=== PATIENT | female | born 1950 | race African-American/Black ===

== ENCOUNTER 2017-04-11 15:14 | Emergency (ER) | payer MEDICARE ==
[~2017-04-11] VITALS: Ht 172.7 cm; Wt 118.0 kg
[~2017-04-11 15:14] MED LIST: LABETALOL PO; LEVOTHYROXINE PO; NICO1PAT15 TP; SIMV5TAB PO; TRIAMTERENE PO
[2017-04-11 15:22] VITALS: BP 177/94
[2017-04-11] MEDS ORDERED: AMLO10TA80 PO (15:31)
[2017-04-11] MEDS ORDERED: ASPI-1035 PO (15:31)
[2017-04-11] MEDS ORDERED: LOSA100T14 PO (15:31)
[2017-04-11] MEDS ORDERED: ACETAMINOPHEN 325MG TABLET PO ONE (17:15)
== END 2017-04-11 18:48 | disposition home or self-care (01) ==
LOC: ER 16:48
DX: M17.9 Osteoarthritis of knee, unspecified (principal); E03.9 Hypothyroidism, unspecified; E78.00 Pure hypercholesterolemia, unspecified; I10 Essential (primary) hypertension; Z87.891 Personal history of nicotine dependence; Z88.8 Allergy status to other drugs, medicaments and biological substances; Z79.82 Long term (current) use of aspirin
CPT/HCPCS: 73562; 99284

== ENCOUNTER 2017-06-02 16:15 | Inpatient (IN) | payer MEDICARE ==
[~2017-06-02] VITALS: Ht 172.7 cm; Wt 133.6 kg
[~2017-06-02 16:15] MED LIST changes: +AMLO10TA80 PO; +ASPI-1159 PO; +IOHEXOL-350 100 ML BOTTLE ONE; +LOSA100T14 PO; +SODIUM CHLORIDE 0.9% 10ML VIAL ONE
[2017-06-02] MEDS ORDERED: ASPIRIN 325MG TABLET PO ONE (18:00)
[2017-06-02] MEDS ORDERED: SODIUM CHLORIDE 0.9% 1,000 ML IV NR (18:33)
[2017-06-02 18:35] LABS: BASOPHILS % 1.2 % (0.0-2.0); HEMATOCRIT. 32.3 % (36.0-48.0); HEMOGLOBIN. 10.8 g/dL (12.0-16.0); LYMPHOCYTES % 22.6 % (20.0-50.0); MEAN CORPUSCULAR HEMOGLOBIN 31.5 pg (28.0-32.0); MEAN CORPUSCULAR VOLUME 93.8 fL (81.0-99.0); MEAN PLATELET VOLUME 9.1 fl (7.4-10.4); MONOCYTES % 7.7 % (2.0-8.0); NEUTROPHILS % 66.5 % (40.0-76.0); PLATELET 197 x1000/uL (130-400); RED BLOOD CELL COUNT 3.44 mill/uL (4.2-5.4); RED CELL DISTRIBUTION WIDTH 15.4 % (11.6-14.6)
[2017-06-02 18:43] LABS: CHLORIDE 106 mEq/L (98-107)
[2017-06-02 18:44] LABS: D-DIMER 1.57 mg/L FEU (<0.50); INR 1.2; PROTHROMBIN TIME 12.1 sec
[2017-06-02 18:45] LABS: CARBON DIOXIDE 28 mEq/L (21-32)
[2017-06-02] MEDS ORDERED: LEVOFLOXACIN 750MG PREMIX 150 ML IV NR (18:45)
[2017-06-02 19:45] LABS: CLARITY URINE CLEAR (CLEAR); COLOR URINE YELLOW (YELLOW); GLUCOSE URINE NEGATIVE (NEGATIVE); KETONES URINE NEGATIVE (NEGATIVE); LEUKOCYTE ESTERASE URINE NEGATIVE (NEGATIVE); NITRITE URINE NEGATIVE (NEGATIVE); OCCULT BLOOD URINE NEGATIVE (NEGATIVE); PH URINE 7.5 (4.5-8.0); PROTEIN URINE NEGATIVE (NEGATIVE); SPECIFIC GRAVITY URINE 1.008 (1.005-1.030)
[2017-06-02 21:59] VITALS: BP 162/114
[2017-06-02] MEDS ORDERED: PROBIOTICS PO (22:15)
[2017-06-02] MEDS ORDERED: MULT-1146 PO (22:15)
[2017-06-02 22:39] VITALS: BP 168/110
[2017-06-02 23:00] VITALS: BP 170/113
[2017-06-02] MEDS ORDERED: ACETAMINOPHEN 325MG TABLET PO PRN (23:15)
[2017-06-02] MEDS ORDERED: CLONIDINE 0.1MG TABLET PO PRN (23:15)
[2017-06-02] MEDS ORDERED: ONDANSETRON HCL 4MG/2ML VIAL IV PRN (23:15)
[2017-06-02] MEDS ORDERED: DOCUSATE SODIUM 100MG CAPSULE PO PRN (23:15)
[2017-06-03] VITALS (19 sets, daily range): BP systolic 135–188; BP diastolic 65–129
[2017-06-03] MEDS: METOPROLOL TARTRATE 25MG TABLET PO SCH ×2 (00:04→08:31)
[2017-06-03] MEDS: OMEPRAZOLE 20MG CAPSULE EXTENDED RELEASE PO SCH ×3 (00:05→21:10)
[2017-06-03] MEDS: FUROSEMIDE 40MG/4ML VIAL IV SCH ×3 (00:05→16:41)
[2017-06-03] MEDS: ENOXAPARIN 150MG/ML SYR SUBCUT SCH ×2 (01:21→13:04)
[2017-06-03] MEDS: LEVOTHYROXINE SODIUM 100MCG TABLET PO SCH (06:12)
[2017-06-03 07:08] LABS: BASOPHILS % 1.6 % (0.0-2.0); EOSINOPHILS % 3.1 % (0.0-5.0); HEMOGLOBIN. 10.9 g/dL (12.0-16.0); MEAN CORPUSCULAR VOLUME 94.1 fL (81.0-99.0); MEAN PLATELET VOLUME 9.1 fl (7.4-10.4); MONOCYTES % 9.7 % (2.0-8.0); NEUTROPHILS % 59.6 % (40.0-76.0); PLATELET 200 x1000/uL (130-400); RED CELL DISTRIBUTION WIDTH 15.5 % (11.6-14.6)
[2017-06-03 07:41] LABS: CARBON DIOXIDE 29 mEq/L (21-32); CHLORIDE 103 mEq/L (98-107); HDL CHOLESTEROL 50 mg/dL (40-59); LDL CHOLESTEROL 79 mg/dL (5-100); T4 FREE 0.26 ng/dL (0.76-1.46)
[2017-06-03 08:18] LABS: CREATINE KINASE MB FRACTION 4.8 ng/mL (0.5-3.6)
[2017-06-03] MEDS: LOSARTAN POTASSIUM 100 MG TABLET PO SCH (08:32)
[2017-06-03] MEDS: ASPIRIN 81MG EC TABLET PO SCH (08:33)
[2017-06-03 09:08] LABS: TROPONIN I 1.5 ng/mL (0.00-0.04)
[2017-06-03] MEDS ORDERED: HYDRALAZINE 20MG/ML VIAL IV PRN (12:00)
[2017-06-03 15:29] LABS: CREATINE KINASE MB FRACTION 4.9 ng/mL (0.5-3.6)
[2017-06-03 15:46] LABS: TROPONIN I 1.6 ng/mL (0.00-0.04)
[2017-06-03] MEDS ORDERED: LEVOFLOXACIN 500MG PREMIX 100 ML IV SCH (20:00)
[2017-06-03] MEDS: AMLODIPINE 2.5MG TABLET PO SCH (21:10)
[2017-06-04] VITALS (12 sets, daily range): BP systolic 127–160; BP diastolic 75–103
[2017-06-04] MEDS: ENOXAPARIN 150MG/ML SYR SUBCUT SCH ×2 (00:09→12:35)
[2017-06-04 06:35] LABS: BASOPHILS % 1.2 % (0.0-2.0); EOSINOPHILS % 3.8 % (0.0-5.0); HEMATOCRIT. 33.3 % (36.0-48.0); HEMOGLOBIN. 11.2 g/dL (12.0-16.0); LYMPHOCYTES % 34.5 % (20.0-50.0); MEAN CORPUSCULAR HEMOGLOBIN 31.8 pg (28.0-32.0); MEAN CORPUSCULAR VOLUME 94.9 fL (81.0-99.0); MEAN PLATELET VOLUME 9.1 fl (7.4-10.4); MONOCYTES % 10.8 % (2.0-8.0); NEUTROPHILS % 49.7 % (40.0-76.0); PLATELET 196 x1000/uL (130-400); RED BLOOD CELL COUNT 3.51 mill/uL (4.2-5.4); RED CELL DISTRIBUTION WIDTH 15.5 % (11.6-14.6)
[2017-06-04] MEDS: LEVOTHYROXINE SODIUM 100MCG TABLET PO SCH (06:36)
[2017-06-04] MEDS: OMEPRAZOLE 20MG CAPSULE EXTENDED RELEASE PO SCH (06:36)
[2017-06-04 06:43] LABS: CARBON DIOXIDE 31 mEq/L (21-32); CHLORIDE 100 mEq/L (98-107); CREATINE KINASE 385 IU/L (26-192); CREATINE KINASE MB FRACTION 3.6 ng/mL (0.5-3.6); HDL CHOLESTEROL 48 mg/dL (40-59); LDL CHOLESTEROL 93 mg/dL (5-100)
[2017-06-04] MEDS: ASPIRIN 81MG EC TABLET PO SCH (08:34)
[2017-06-04] MEDS: LOSARTAN POTASSIUM 100 MG TABLET PO SCH (08:34)
[2017-06-04] MEDS: FUROSEMIDE 40MG/4ML VIAL IV SCH (08:34)
[2017-06-04] MEDS: AMLODIPINE 2.5MG TABLET PO SCH (08:34)
== END 2017-06-04 13:50 | disposition home or self-care (01) | DRG 291 ==
LOC: ER 16:15 → 3WST 17:58 → EDBEDREQSVC 19:34 → EDBEDREQ 19:34 → ENRESERV 19:52
PROVIDERS: ADMIT Internal Medicine; ATTEND Internal Medicine
DX: I11.0 Hypertensive heart disease with heart failure (principal); J18.9 Pneumonia, unspecified organism; E46 Unspecified protein-calorie malnutrition; Z68.41 Body mass index [BMI] 40.0-44.9, adult; I50.23 Acute on chronic systolic (congestive) heart failure; I42.9 Cardiomyopathy, unspecified; E03.9 Hypothyroidism, unspecified; D64.9 Anemia, unspecified; D72.819 Decreased white blood cell count, unspecified; E66.01 Morbid (severe) obesity due to excess calories; E78.00 Pure hypercholesterolemia, unspecified; E78.5 Hyperlipidemia, unspecified; R00.1 Bradycardia, unspecified; I44.0 Atrioventricular block, first degree; Z79.82 Long term (current) use of aspirin; Z79.899 Other long term (current) drug therapy; Z88.8 Allergy status to other drugs, medicaments and biological substances; Z82.41 Family history of sudden cardiac death; Z87.891 Personal history of nicotine dependence
CPT/HCPCS: 36415; 71010; 71275; 80053; 80061; 81003; 82550; 82553; 83605; 83735; 83880; 84439; 84443; 84481; 84484; 85025; 85379; 85610; 87040; 93005; 93306; 93970; 96365; 99291; A4216; J1650; J1940; J1956; J7050; Q9967

== ENCOUNTER 2018-01-08 17:49 | Inpatient (IN) | payer MEDICARE ==
[~2018-01-08] VITALS: Ht 177.8 cm; Wt 155.6 kg
[~2018-01-08 17:49] MED LIST changes: -IOHEXOL-350 100 ML BOTTLE ONE; -LABETALOL PO; +MULT-1146 PO; +PROBIOTICS PO; -SIMV5TAB PO; +SIMV5TAB2 PO; -SODIUM CHLORIDE 0.9% 10ML VIAL ONE
[2018-01-08] MEDS ORDERED: ONDANSETRON HCL 4MG/2ML VIAL IV STA (18:23)
[2018-01-08] MEDS ORDERED: MORPHINE SULFATE 4 MG/ML CPJ (NOT FOR IM USE) IV STA (18:23)
[2018-01-08] MEDS ORDERED: VANCOMYCIN 1 G PREMIX 200 ML IV ONE (18:30)
[2018-01-08] MEDS ORDERED: PIPERACILLIN/TAZ 3.375G PREMIX 50 ML IV ONE (18:30)
[2018-01-08 18:53] LABS: BASOPHILS % 1.1 % (0.0-2.0); EOSINOPHILS % 3.4 % (0.0-5.0); HEMOGLOBIN. 11.8 g/dL (12.0-16.0); LYMPHOCYTES % 21.5 % (20.0-50.0); MEAN CORPUSCULAR HEMOGLOBIN 30.7 pg (28.0-32.0); MEAN CORPUSCULAR VOLUME 96.2 fL (81.0-99.0); MEAN PLATELET VOLUME 9.2 fl (7.4-10.4); MONOCYTES % 12.1 % (2.0-8.0); NEUTROPHILS % 61.9 % (40.0-76.0); PLATELET 238 x1000/uL (130-400); RED BLOOD CELL COUNT 3.85 mill/uL (4.2-5.4); RED CELL DISTRIBUTION WIDTH 16.2 % (11.6-14.6)
[2018-01-08 19:01] LABS: INR 1.2; PARTIAL THROMBOPLASTIN TIME 30.7 sec (23.4-31.0); PROTHROMBIN TIME 12.5 sec (9.4-11.6)
[2018-01-08 19:09] LABS: CHLORIDE 108 mEq/L (98-107)
[2018-01-08 19:16] LABS: CREATINE KINASE 522 IU/L (26-192)
[2018-01-08 22:06] LABS: BG BASE EXCESS 0.1 mmol/L (-2.0-2.0); BG CARBOXYHEMOGLOBIN 0.4 % (0.5-1.5); BG DEOXYHEMOGLOBIN 1.1 % (0.0-5.0); BG FRACTION INSPIRED OXYGEN 100; BG HCO3 ACT 28.3 mmol/L (22.0-26.0); BG METHEMOGLOBIN 0.3 % (0.0-1.5); BG OXYGEN SATURATION 98.9 % (92.0-98.5); BG OXYHEMOGLOBIN 98.2 % (94.0-97.0); BG PCO2 63.6 mmHg (35.0-45.0); BG PH 7.266 (7.350-7.450); BG PO2 195.2 mmHg (75.0-100.0); BG SAMPLE SITE RIGHT BRACHIAL; BG TOTAL HEMOGLOBIN 11.9 g/dL (12.0-18.0); BG VENT MODE MASK - NRB
[2018-01-09 01:15] VITALS: BP 120/61
[2018-01-09] MEDS ORDERED: LEVO100T9 PO (04:34)
[2018-01-09] MEDS ORDERED: CARV3.1242 PO (04:38)
[2018-01-09] MEDS ORDERED: FURO-151 PO (04:38)
[2018-01-09] MEDS ORDERED: DOXA1TAB PO (04:38)
[2018-01-09] MEDS ORDERED: SPIR25TA4 PO (04:38)
[2018-01-09] MEDS ORDERED: SERT25TA74 PO (04:38)
[2018-01-09] MEDS ORDERED: IPRATROPIUM/ALBUTEROL 0.5-3(2.5)MG/3ML NEB HHN PRN (05:00)
[2018-01-09] MEDS ORDERED: HYDROCODONE/ACETAMINOPHEN 5/325MG TABLET PO PRN (05:15)
[2018-01-09] MEDS ORDERED: FUROSEMIDE 40MG/4ML VIAL IVP SCH (05:22)
[2018-01-09] MEDS ORDERED: LEVOTHYROXINE SODIUM 100MCG TABLET PO SCH (07:40)
[2018-01-09 08:00] VITALS: BP 121/79
[2018-01-09] MEDS ORDERED: ENOXAPARIN 40MG/0.4ML SYR SUBCUT SCH (09:00)
[2018-01-09] MEDS ORDERED: CARVEDILOL 3.125 MG TABLET PO SCH (09:00)
[2018-01-09] MEDS ORDERED: MEDICATION NOT ON FORMULARY EA (Simvastatin (Zocor) 20 MG) PO SCH (09:00)
[2018-01-09] MEDS ORDERED: ASPIRIN 81MG EC TABLET PO SCH (09:00)
[2018-01-09] MEDS ORDERED: MEDICATION NOT ON FORMULARY EA (Multivitamin (Multi Vitamin Daily) 1 TAB) PO SCH (09:00)
[2018-01-09] MEDS ORDERED: MEDICATION NOT ON FORMULARY EA (Doxazosin Mesylate 1 MG) PO SCH (09:00)
[2018-01-09] MEDS ORDERED: DOXAZOSIN MESYLATE 2MG TABLET PO SCH (09:00)
[2018-01-09] MEDS ORDERED: AMLODIPINE 10MG TABLET PO SCH (09:00)
[2018-01-09] MEDS ORDERED: SERTRALINE HCL 25MG TABLET PO SCH (09:00)
[2018-01-09] MEDS ORDERED: LOSARTAN POTASSIUM 100 MG TABLET PO SCH (09:00)
[2018-01-09] MEDS ORDERED: MULTIVITAMINS,THER W-MINERALS TABLET PO SCH (09:00)
[2018-01-09] MEDS: IPRATROPIUM/ALBUTEROL 0.5-3(2.5)MG/3ML NEB HHN SCH ×3 (10:11→17:20)
[2018-01-09 12:00] VITALS: BP 129/79
[2018-01-09] MEDS ORDERED: CEFTRIAXONE 1 G PREMIX 50 ML IV SCH (13:00)
[2018-01-09 13:18] LABS: BASOPHILS % 1.1 % (0.0-2.0); EOSINOPHILS % 3.6 % (0.0-5.0); HEMATOCRIT. 34.2 % (36.0-48.0); LYMPHOCYTES % 13.8 % (20.0-50.0); MEAN CORPUSCULAR HEMOGLOBIN 31.2 pg (28.0-32.0); MEAN CORPUSCULAR VOLUME 96.7 fL (81.0-99.0); MEAN PLATELET VOLUME 8.9 fl (7.4-10.4); MONOCYTES % 10.7 % (2.0-8.0); NEUTROPHILS % 70.8 % (40.0-76.0); PLATELET 216 x1000/uL (130-400); RED BLOOD CELL COUNT 3.54 mill/uL (4.2-5.4); RED CELL DISTRIBUTION WIDTH 16.4 % (11.6-14.6)
[2018-01-09 15:07] VITALS: BP_SYST 118; BP_SYST 129; BP_DIAS 79; BP_DIAS 80
[2018-01-09 16:00] VITALS: BP 118/80
[2018-01-09] MEDS ORDERED: ATORVASTATIN CALCIUM 10MG TABLET PO SCH (21:00)
[2018-01-11] MEDS ORDERED: SPIRONOLACTONE 25MG TABLET PO SCH (09:00)
== END 2018-01-09 19:15 | DRG 70 ==
LOC: ER 17:55 → 7WST 20:24 → EDBEDREQ 20:36 → ENRESERV 23:57
PROVIDERS: ADMIT Internal Medicine; ATTEND Internal Medicine
DX: G93.40 Encephalopathy, unspecified (principal); I50.23 Acute on chronic systolic (congestive) heart failure; I42.0 Dilated cardiomyopathy; E66.01 Morbid (severe) obesity due to excess calories; Z68.42 Body mass index [BMI] 45.0-49.9, adult; J44.9 Chronic obstructive pulmonary disease, unspecified; I11.0 Hypertensive heart disease with heart failure; E03.9 Hypothyroidism, unspecified; W01.0XXA Fall on same level from slipping, tripping and stumbling without subsequent striking against object, initial encounter; E78.00 Pure hypercholesterolemia, unspecified; E78.5 Hyperlipidemia, unspecified; T40.2X5A Adverse effect of other opioids, initial encounter; I34.0 Nonrheumatic mitral (valve) insufficiency; Y93.89 Activity, other specified; Y92.89 Other specified places as the place of occurrence of the external cause; Y99.8 Other external cause status; Z88.8 Allergy status to other drugs, medicaments and biological substances; Z79.899 Other long term (current) drug therapy; Z79.82 Long term (current) use of aspirin
CPT/HCPCS: 36415; 36600; 71045; 80048; 80053; 82375; 82550; 82805; 83605; 83690; 83880; 84484; 85025; 85610; 85730; 87040; 93005; 93970; 99285; J0696; J1650; J1940; J2270; J2405; J2543; J3370; J7050; J7620

== ENCOUNTER 2018-04-17 15:38 | Observation (INO) | payer MEDICARE ==
[~2018-04-17] VITALS: Ht 172.7 cm; Wt 114.8 kg
[~2018-04-17 15:38] MED LIST changes: +CARV3.1242 PO; +DOXA1TAB PO; +FURO-151 PO; +LEVO100T9 PO; -LEVOTHYROXINE PO; -PROBIOTICS PO; +SERT25TA74 PO; +SPIR25TA6 PO; -TRIAMTERENE PO
[2018-04-17] MEDS ORDERED: NITROGLYCERIN OINT 1GM/INCH UDPKT TD STA (16:40)
[2018-04-17] MEDS ORDERED: ASPIRIN 81MG TABLET PO STA (16:40)
[2018-04-17] MEDS ORDERED: FUROSEMIDE 40MG/4ML VIAL IV STA (16:40)
[2018-04-17] MEDS ORDERED: CLONIDINE 0.2MG TABLET PO ONE (16:45)
[2018-04-17 17:21] LABS: CHLORIDE 106 mEq/L (98-107)
[2018-04-17 17:25] LABS: INR 1.5; PARTIAL THROMBOPLASTIN TIME 22.4 sec (23.4-31.0); PROTHROMBIN TIME 15.5 sec (9.4-11.6)
[2018-04-17 17:58] LABS: HEMATOCRIT. 29.9 % (36.0-48.0); HEMOGLOBIN. 9.4 g/dL (12.0-16.0); MEAN CORPUSCULAR HEMOGLOBIN 27.3 pg (28.0-32.0); MEAN CORPUSCULAR VOLUME 86.4 fL (81.0-99.0); MEAN PLATELET VOLUME 8.4 fl (7.4-10.4); PLATELET 269 x1000/uL (130-400); RED BLOOD CELL COUNT 3.46 mill/uL (4.2-5.4); RED CELL DISTRIBUTION WIDTH 19.1 % (11.6-14.6)
[2018-04-17 18:44] LABS: PLATELET ESTIMATE NORMAL
[2018-04-17] MEDS ORDERED: ENOXAPARIN 120MG/0.8ML SYR SUBCUT ONE (19:30)
[2018-04-17 22:56] VITALS: BP 154/91
[2018-04-18] MEDS ORDERED: ACETAMINOPHEN 500MG TABLET PO PRN (01:15)
[2018-04-18] MEDS ORDERED: CEFTRIAXONE 1 G PREMIX 50 ML IV SCH (03:00)
[2018-04-18 04:00] VITALS: BP 131/70
[2018-04-18 07:27] LABS: BASOPHILS % 0.7 % (0.0-2.0); EOSINOPHILS % 3.4 % (0.0-5.0); HEMATOCRIT. 26.4 % (36.0-48.0); HEMOGLOBIN. 8.3 g/dL (12.0-16.0); LYMPHOCYTES % 14.2 % (20.0-50.0); MEAN CORPUSCULAR HEMOGLOBIN 27.1 pg (28.0-32.0); MEAN CORPUSCULAR VOLUME 86.5 fL (81.0-99.0); MEAN PLATELET VOLUME 8.5 fl (7.4-10.4); MONOCYTES % 14.1 % (2.0-8.0); NEUTROPHILS % 67.6 % (40.0-76.0); PLATELET 229 x1000/uL (130-400); RED BLOOD CELL COUNT 3.05 mill/uL (4.2-5.4); RED CELL DISTRIBUTION WIDTH 19.1 % (11.6-14.6)
[2018-04-18] MEDS ORDERED: PANTOPRAZOLE 40MG DR TABLET PO SCH (07:40)
[2018-04-18] MEDS ORDERED: LEVOTHYROXINE SODIUM 100MCG TABLET PO SCH (07:40)
[2018-04-18 07:57] LABS: T4 FREE 0.47 ng/dL (0.76-1.46)
[2018-04-18 08:00] VITALS: BP 121/69
[2018-04-18] MEDS ORDERED: ENOXAPARIN 40MG/0.4ML SYR SUBCUT SCH (09:00)
[2018-04-18] MEDS ORDERED: ASPIRIN 81MG EC TABLET PO SCH (09:00)
[2018-04-18] MEDS ORDERED: SPIRONOLACTONE 25MG TABLET PO SCH (09:00)
[2018-04-18] MEDS ORDERED: FUROSEMIDE 40MG/4ML VIAL IVP SCH (09:00)
[2018-04-18] MEDS ORDERED: LOSARTAN POTASSIUM 100 MG TABLET PO SCH (09:00)
[2018-04-18] MEDS: CARVEDILOL 6.25 MG TABLET PO SCH ×2 (09:06→21:16)
[2018-04-18] MEDS: ENOXAPARIN 30MG/0.3ML SYR SUBCUT SCH ×2 (09:08→21:17)
[2018-04-18 12:00] VITALS: BP 112/73
[2018-04-18 15:06] VITALS: BP 125/69
[2018-04-18 15:14] LABS: BG CARBOXYHEMOGLOBIN 0.7 % (0.5-1.5); BG DEOXYHEMOGLOBIN 8.2 % (0.0-5.0); BG FRACTION INSPIRED OXYGEN 21; BG METHEMOGLOBIN 0.3 % (0.0-1.5); BG OXYGEN SATURATION 91.7 % (92.0-98.5); BG OXYHEMOGLOBIN 90.8 % (94.0-97.0); BG PCO2 44.2 mmHg (35.0-45.0); BG PH 7.404 (7.350-7.450); BG PO2 67.4 mmHg (75.0-100.0); BG SAMPLE SITE RIGHT RADIAL; BG TOTAL HEMOGLOBIN 9.9 g/dL (12.0-18.0); BG VENT MODE ROOM AIR
[2018-04-18] MEDS ORDERED: NA PHOS,M-B/NA PHOS,DI-BA ENEMA 118ML PR PRN (15:15)
[2018-04-18] MEDS ORDERED: ACETAMINOPHEN 650MG SUPP PR PRN (15:15)
[2018-04-18] MEDS ORDERED: ONDANSETRON HCL 4MG/2ML VIAL IV PRN (15:15)
[2018-04-18] MEDS: FUROSEMIDE 40MG/4ML VIAL IVP SCH ×2 (18:19→21:00)
[2018-04-18 19:33] LABS: AMMONIA 37 uMol/L (<32)
[2018-04-18 20:00] VITALS: BP 112/59
[2018-04-18] MEDS ORDERED: ATORVASTATIN CALCIUM 10MG TABLET PO SCH (21:00)
[2018-04-18 23:00] VITALS: BP 108/60
[2018-04-19] VITALS: BP 128/80
== END 2018-04-19 01:15 ==
LOC: ER 15:38 → 7WST 19:34 → INTOOBSV 19:34 → EDBEDREQ 19:38 → EDBEDREQTM 19:38 → ENRESERV 21:26
PROVIDERS: ADMIT Internal Medicine; ATTEND Internal Medicine
DX: I11.0 Hypertensive heart disease with heart failure (principal); I50.23 Acute on chronic systolic (congestive) heart failure; I42.0 Dilated cardiomyopathy; E03.9 Hypothyroidism, unspecified; E78.00 Pure hypercholesterolemia, unspecified; E78.5 Hyperlipidemia, unspecified; J44.9 Chronic obstructive pulmonary disease, unspecified; D72.819 Decreased white blood cell count, unspecified; L03.90 Cellulitis, unspecified; G93.40 Encephalopathy, unspecified; R73.9 Hyperglycemia, unspecified; E66.01 Morbid (severe) obesity due to excess calories; E88.09 Other disorders of plasma-protein metabolism, not elsewhere classified; D64.9 Anemia, unspecified
CPT/HCPCS: 36415; 36600; 70450; 71045; 80048; 80053; 80061; 82140; 82375; 82550; 82553; 82805; 82962; 83880; 84439; 84443; 84484; 85025; 85610; 85730; 93005; 93970; 96365; 96372; 96375; 96376; 99291; A6261; G0378; J0696; J1650; J1940; J7040; 96374

== ENCOUNTER 2018-10-21 16:19 | Emergency (ER) | payer MEDICARE ==
[~2018-10-21] VITALS: Ht 165.1 cm; Wt 116.0 kg
[~2018-10-21 16:19] MED LIST changes: -AMLO10TA80 PO; -CARV3.1242 PO; +DEXTROSE 50% WATER 50ML SYRINGE IV ONE; -DOXA1TAB PO; +EPINEPHRINE 0.1MG/ML (1:10,000) 10ML SYR ONE; -FURO-151 PO; +MAGNESIUM SULFATE 4G IN WATER 100ML PREMIX IV ONE; -MULT-1146 PO; -NICO1PAT15 TP; -SERT25TA74 PO; -SIMV5TAB2 PO; -SPIR25TA6 PO
[2018-10-21] MEDS ORDERED: SODIUM BICARBONATE 8.4% 1 MEQ/ML 50ML SYR IV ONE (16:41)
[2018-10-21] MEDS ORDERED: DOPAMINE 400MG PREMIX 250 ML IV ONE (16:57)
[2018-10-21] MEDS ORDERED: DOBUTAMINE 250MG PREMIX 250 ML IV ONE (17:30)
[2018-10-21 17:37] LABS: HEMATOCRIT. 38.9 % (36.0-48.0); HEMOGLOBIN. 11.6 g/dL (12.0-16.0); MEAN CORPUSCULAR HEMOGLOBIN 29.5 pg (28.0-32.0); MEAN CORPUSCULAR VOLUME 99.5 fL (81.0-99.0); MEAN PLATELET VOLUME 9.2 fl (7.4-10.4); PLATELET 147 x1000/uL (130-400); RED BLOOD CELL COUNT 3.91 mill/uL (4.2-5.4); RED CELL DISTRIBUTION WIDTH 19.1 % (11.6-14.6)
[2018-10-21 17:42] LABS: CHLORIDE 100 mEq/L (98-107)
[2018-10-21 17:43] VITALS: BP 97/71
[2018-10-21 17:46] LABS: ETHANOL BLOOD < 10 mg/dL; INR 1.7; PARTIAL THROMBOPLASTIN TIME 34.1 sec (23.4-31.0); PROTHROMBIN TIME 17.1 sec (9.1-11.1)
[2018-10-21 17:53] LABS: NUCLEATED RED BLOOD CELLS 3 /100 WBC; PLATELET ESTIMATE NORMAL
== END 2018-10-21 17:43 | disposition expired ==
LOC: ER 16:19 → CANBEDREQ 21:28
DX: I46.9 Cardiac arrest, cause unspecified (principal); I11.0 Hypertensive heart disease with heart failure; J45.909 Unspecified asthma, uncomplicated; E03.9 Hypothyroidism, unspecified; I50.9 Heart failure, unspecified; Z88.3 Allergy status to other anti-infective agents; Z88.8 Allergy status to other drugs, medicaments and biological substances; Z79.82 Long term (current) use of aspirin
CPT/HCPCS: 31500; 36415; 36556; 80053; 82962; 83605; 83690; 83880; 84484; 85025; 85610; 85730; 92950; 93005; 94002; 99291; 99292; G0482; J1250; J1265; J3475; J3490; A4315